=== PATIENT | male | born 2005 | race Caucasian/White ===

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

== ENCOUNTER 2024-05-08 23:19 | Emergency (ER) | payer BC, OTHER ==
[2024-05-08 23:48] VITALS: TEMP 98.1
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
[2024-05-09 02:09] VITALS: BP 124/79; PULSE 71; RESP 18
== END 2024-05-09 02:17 | disposition home or self-care (01) ==
LOC: EC 23:19
DX: S60.221A Contusion of right hand, initial encounter (principal); F17.290 Nicotine dependence, other tobacco product, uncomplicated; Y04.2XXA Assault by strike against or bumped into by another person, initial encounter
CPT/HCPCS: 99283

== ENCOUNTER 2024-06-13 09:02 | Day surgery (SDC) | payer BC, OTHER ==
[2024-06-13] MEDS: IV FLUID CONTINUATION 1,000 ML IV ONE (09:30)
[2024-06-13 09:35] LABS: Basophils # (A) 0.02 10*3/uL (0.00-0.10); Basophils % (A) 0.5 %; Eosinophils # (A) 0.08 10*3/uL (0.04-0.35); HGB 16.8 g/dL (13.0-17.0); Lymphocytes % (A) 32.7 %; MCV 88.6 fL (80.0-97.0); Mean Platelet Volume 9.6 fL (9.5-12.2); Monocytes # (A) 0.34 10*3/uL (0.20-1.00); Monocytes % (A) 8.5 %; Neutrophils # (A) 2.23 10*3/uL (1.80-7.70); Platelet Count 192 10*3/uL (140-440); RBC 5.42 10*6/uL (4.40-5.60); WBC 3.98 10*3/uL (4.50-10.00)
[2024-06-13 09:56] LABS: ALT 19 U/L (4-49); AST 31 U/L (17-59); African American GFR (CKD) >90 (>60 ml/min/1.73 sqM); Albumin 4.7 g/dL (3.5-5.0); Alkaline Phosphatase 74 U/L (38-126); Anion Gap 4 mmol/L; Blood Urea Nitrogen 12 mg/dL (9-20); Calcium 9.7 mg/dL (8.4-10.2); Carbon Dioxide 33 mmol/L (22-30); Chloride 103 mmol/L (98-107); Glucose 91 mg/dL (74-99); Non-African American GFR(CKD) >90 (>60 ml/min/1.73 sqM); Potassium 4.2 mmol/L (3.5-5.1); Sodium 140 mmol/L (137-145); Total Bilirubin 0.9 mg/dL (0.2-1.3)
[2024-06-13] MEDS ORDERED: fentaNYL (PF) 50 MCG/ML 2 ML AMP ONE (11:44)
[2024-06-13] MEDS ORDERED: PROPOFOL 10 MG/ML 20 ML VIAL IV ONE (11:44)
[2024-06-13] MEDS ORDERED: ISOPROTERENOL 250 MCG/1.25 ML SYR IV ONE (11:44)
[2024-06-13] MEDS ORDERED: MIDAZOLAM 2 MG/2 ML VIAL ONE (11:44)
[2024-06-13] MEDS: LIDOCAINE 1% INJ 10MG/ML (20 ML MDV) SQ ONE (12:30)
[2024-06-13] MEDS: ROPIVACAINE 5 MG/ML 30 ML VIAL MISCELLANE ONE (12:30)
[2024-06-13] MEDS: LACTATED RINGERS 1,000 ML IV ONE (14:00)
[2024-06-13] MEDS: HEPARIN SODIUM (1,000 UNIT/ML) 1,000 UNIT in SODIUM CHLORIDE 0.9% 1,000 ML IRRIGATION ONE (14:30)
[2024-06-13] MEDS ORDERED: ACETAMINOPHEN TAB 325 MG TAB PO PRN (16:31)
--- NOTE | 2024-06-13 16:39 | P.HPCAR ---
History of Present Illness This is Dr. Nassar dictating an H/P on this patient The patient was interviewed and examined IMPRESSION / ASSESSMENT: Recurrent palpitations and 2 episodes of loss of consciousness that are preceded by palpitations Mitral prolapse without significant MR Exercise stress test shows multiple episodes of nonsustained wide-complex tachycardia Cardiac MRI in showed normal LV with mitral prolapse without any significant MR, mild prolapse Monitor shows possible episodes of SVT PLAN: Full diagnostic EP study to evaluate for SVT and for VT/syncope preceded by palpitations HPI Has episodes of syncope and presyncope that are preceded by rapid heartbeat. His monitor shows possible SVT Exercise stress test showed nonsustained VT Cardiac MRI showed normal RV function normal LV size and function, mildly enlarged RV Mild mitral prolapse without any significant mitral regurgitation ROS: No fever chills or rigors, no cough, phlegm or expectoration, no nausea, vomiting or diarrhea, no hematuria, dysuria, no musculoskeletal complaints, no strokes or seizures, no skin lesions. EXAMINATION: 136/61 mmHg pulse rate in the 70s afebrile Heart sounds S1-S2 normal Breath sounds are clear No JVD No lower extremity edema REVIEW OF LABS, ECG & MEDICAL DATA White count 4000, hematocrit 48, platelet count 192,000 Electrolytes normal Renal function normal Physical Exam Vitals: Vital Signs Temp Pulse Resp BP BP Pulse Ox 06/13/24 09:38 117/65 06/13/24 09:22 98.0 F 74 16 136/61 100 Intake and Output 06/13/24 06/13/24 06/13/24 06:59 14:59 22:59 Intake Total 1762 Balance 1762 Intake: IV 1762 Other: Weight 57.1 kg Past Medical History Past Medical History: Chest Pain / Angina, GERD/Reflux, Skin Disorder, Supraventricular Tachycardia (SVT), Syncope Additional Past Medical History / Comment(s): mild Autism, See Dr Nassar H&P, dry skin rashiness to hands- seeing bi report developer History of Any Multi-Drug Resistant Organisms: None Reported Additional Past Surgical History / Comment(s): lateral release L eye, screw and bolt to rt hand 5th metacarpal. colonscopy Past Anesthesia/Blood Transfusion Reactions: No Reported Reaction Smoking Status: Former smoker, Vaper - Past Family History Father Family Medical History: Diabetes Mellitus Mother History Unknown: Yes Physical Examination Vital Signs Temp Pulse Resp BP BP Pulse Ox 06/13/24 09:38 117/65 06/13/24 09:22 98.0 F 74 16 136/61 100 Intake and Output 06/13/24 06/13/24 06/13/24 06:59 14:59 22:59 Intake Total 1762 Balance 1762 Intake: IV 1762 Other: Weight 57.1 kg Results 06/13/24 09:25 06/13/24 09:25 Cardiac Enzymes 06/13/24 Range/Units 09:25 AST 31 (17-59) U/L CBC 06/13/24 Range/Units 09:25 WBC 3.98 L (4.50-10.00) 10*3/uL RBC 5.42 (4.40-5.60) 10*6/uL Hgb 16.8 (13.0-17.0) g/dL Hct 48.0 (39.6-50.0) % Plt Count 192 (140-440) 10*3/uL Comprehensive Metabolic Panel 06/13/24 Range/Units 09:25 Sodium 140 (137-145) mmol/L Potassium 4.2 (3.5-5.1) mmol/L Chloride 103 (98-107) mmol/L Carbon Dioxide 33 H (22-30) mmol/L BUN 12 (9-20) mg/dL Creatinine 0.90 (0.66-1.25) mg/dL Glucose 91 (74-99) mg/dL Calcium 9.7 (8.4-10.2) mg/dL AST 31 (17-59) U/L ALT 19 (4-49) U/L Alkaline Phosphatase 74 (38-126) U/L Total Protein 7.0 (6.3-8.2) g/dL Albumin 4.7 (3.5-5.0) g/dL Current Medications Generic Name Dose Route Start Last Admin Trade Name Freq PRN Reason Stop Dose Admin Acetaminophen 650 mg 06/13/24 16:31 Acetaminophen Tab 325 Mg Tab PO Q6HR PRN Mild Pain (Scale 1 to 3) Fluoxetine HCl 20 mg 06/14/24 09:00 Fluoxetine Oral Soln 20 Mg/5 Ml Bottle PO DAILY MAYELA Acetaminophen 1,000 mg/ IV 100 mls @ 400 mls/hr 06/13/24 16:45 Solution IVPB 06/13/24 16:59 ONCE ONE Sodium Chloride 12 ml 04/17/25 16:31 Sodium Chloride 0.9% Flush 10 Ml Syringe IV Q12HR PRN Line Flush Intake and Output 06/13/24 06/13/24 06/13/24 06:59 14:59 22:59 Intake Total 1762 Balance 1762 Intake: IV 1762 Other: Weight 57.1 kg Patient Weight 06/14/24 06:59 Weight 57.1 kg 06/13/24 09:25 06/13/24 09:25
[2024-06-13] MEDS: MEPERIDINE 25 MG/ML SYRINGE IVP STA (16:51)
--- NOTE | 2024-06-13 16:52 | P.EPPROC ---
- EP Procedure Note Electrophysiology Procedure Note: Indication for the procedure: Recurrent syncope and presyncope preceded by rapid heartbeat Monitor shows episodes of SVT Exercise stress test showed nonsustained VT Final diagnosis Diagnosis EP study revealed evidence of slow pathway conduction, with very easily inducible AV opal reentry No evidence of accessory pathway conduction No evidence for inducible ventricular tachycardia both on and off Isopril Successful ablation of the slow pathway with illumination of the slow pathway finally Long ablation on count of extensive area of slow pathway conduction Details Patient was brought to the EP lab in a fasting state. Written informed consent was obtained prior to the procedure. Conscious sedation provided. By anesthesia Venous sheaths were placed in the right left femoral veins and diagnostic catheters post in the high right atrium, coronary sinus, His bundle area and right ventricle Baseline measurements: Sinus cycle length 1228 ms, WA interval 140 ms, QRS 110 and QT interval 431 ms AH 63 and HV interval 43 ms Sinus node recovery times were 1357, 1524 ms AV node Wenckebach block 580 ms VA Wenckebach block 310 ms Para-Hisian pacing revealed a opal response Retrograde conduction was midline and decremental on Isopril ACT was very easily induced on Isopril with straight pacing Ventricular pacing revealed a VAV response Show very short septal times noted SVT consistent with AV opal reentry An ablation catheter along with a deflectable sheath placed in the right atrium His cloud mapped. Coronary sinus mapped, tricuspid annulus mapped Slow pathway mapped on the anterior aspect of the coronary sinus and just below it RF ablation performed in a stepwise manner at the level of the coronary sinus just anterior to it. Junctional rhythm obtained but SVT inducible RF ablation performed outside the coronary sinus on the anterior aspect just at the level of the floor with junctional rhythm. However SVT was still inducible RF ablation performed at the anterior lip of the coronary sinus and at the roof of the coronary sinus. RF ablation then performed anterior to the coronary sinus and outside it at the level of the CS. Lots of junctional rhythm noted and temporarily the AV opal reentry was eliminated However on Isopril AVNRT recurred Further ablation performed at the level of the roof and just outside the roof. Then ablation performed along the tricuspid annulus anterior to the coronary sinus. Junctional rhythm obtained here followed by illumination of slow pathway and AV opal reentry The slow pathway area was quite extensive and in a stepwise manner ablation was performed first at the level of the floor of the coronary sinus, middle level and then at the roof, anteriorly Next ablation was performed outside the coronary sinus anteriorly at least half a centimeter away from the os. Subsequently more towards the tricuspid valve anteriorly with subsequent illumination of the slow pathway and AV opal reentry This is a very long procedure requiring stepwise ablation along the anterior aspect of the coronary sinus and outside it while staying at least 1.6 cm away from the AV node area and greater than 2 cm away from the hiss bundle area At the end of the procedure the WA interval was 161 ms No evidence of slow pathway conduction No evidence for AV opal reentry No evidence for any other arrhythmias At 1 point in time, sustained AVNRT, degenerated into atrial fibrillation This would not terminate spontaneously Successful electrical cardioversion with 100 J biphasic shock in the AP configuration converted the patient to sinus rhythm This is a very long AVNRT ablation the whole procedure lasted for over 5 hours but was ultimately successful and antegrade fast pathway conduction was intact at the end of the procedure All sheaths were removed and closure device applied and good hemostasis achieved
--- NOTE | 2024-06-13 16:54 | P.PRLE ---
RE: Marga Gresham Dear Indra Mr. 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
[2024-06-13] MEDS: ceFAZolin 2 GM in DEXTROSE 5% IN WATER 50 ML IVPB ONE (18:07)
[2024-06-13] MEDS: ACETAMINOPHEN IV (For NPO) 1,000 MG in EMPTY BAG 1 BAG IVPB ONE (18:10)
[2024-06-13] MEDS: SODIUM CHLORIDE 0.9% 1,000 ML IV SCH (18:47)
[2024-06-13] MEDS: LACTATED RINGERS 1,000 ML IV SCH (18:47)
[2024-06-13 22:20] VITALS: RESP 16
[2024-06-14 07:56] VITALS: BP 107/55; PULSE 89; TEMP 98.1
--- NOTE | 2024-06-14 10:15 | DS ---
DISCHARGE SUMMARY Marga Gresham is a 19-year-old male patient, who has history of recurrent syncope preceded by rapid palpitations. 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 He underwent successful ablation for this. There was elimination of the slow pathway and tachycardia was rendered noninducible both on and off Isuprel. His groins have healed well. There is no hematoma. No swelling. Minimal tenderness. Heart sounds are normal and regular. Breath sounds are clear. A 12-lead EKG today shows sinus rhythm, 78 beats per minute. [place] interval of [address]-segment abnormalities. IMPRESSION: 1. Recurrent syncope and presyncope preceded by rapid palpitations. 2. AV opal reentry, status post successful ablation and the tachycardia was rendered noninducible. PLAN: Post EP instructions for the next 2 days was explained to the patient. There is no need for any medications at this time. He will see Dr. Crowe in the office next week. Stable for discharge today. MMODL / IJN: [id number] /
[2024-06-14] MEDS: FLUOXETINE 20 MG/5 ML PO SCH (10:25)
--- NOTE | 2024-06-14 13:22 | CA ---
Transthoracic Echo Report Name: Marga Gresham Age: 19 Gender: M : 2005 Exam Date: 06/13/2024 16:18 Exam Location: [facility] Ht (in): 70 Wt (lb): 125 Ordering Physician: Richmond Nassar MD ([id number]) Attending/Referring Phys: Fire Technician Coco Ny RDCS Procedure CPT: Indications: POST ABLATION, Pericardial effusion (noninflammatory) Cardiac Hx: limited study only Technical Quality: Contrast 1: Total Dose (mL): Contrast 2: Total Dose (mL): MEASUREMENTS (Male / Female) Normal Values FINDINGS Left Ventricle Left ventricular ejection fraction is estimated at 50-55 %. Right Ventricle Right Atrium Left Atrium Mitral Valve Aortic Valve Tricuspid Valve Pulmonic Valve Pericardium No pericardial effusion. No pleural effusion. Aorta CONCLUSIONS Limited follow-up echo study LVEF 50 to 55% No pericardial effusion Previewed by: Dr Arthur Hernandez (Electronically Signed) Final Date: 14 June 2024 13:21
== END 2024-06-14 12:45 | disposition home or self-care (01) ==
LOC: CATHEP 09:02 → 6NMEDSUR 16:10 → CATHEP 06-14 12:45
PROVIDERS: ATTEND Internal Medicine Clinical Cardiac Electrophysiology
DX: I47.19 Other supraventricular tachycardia (principal); I48.91 Unspecified atrial fibrillation; I44.1 Atrioventricular block, second degree; I31.39 Other pericardial effusion (noninflammatory); I34.1 Nonrheumatic mitral (valve) prolapse; F84.0 Autistic disorder; Z83.3 Family history of diabetes mellitus; Z87.891 Personal history of nicotine dependence; Z79.899 Other long term (current) drug therapy
CPT/HCPCS: 93308; 86900; 86901; 80053; 84443; 85025; 86850; C1894; C1769; C1766; C1760; C1730 ×3; C1732; J2003; J1644; J2795; J0131; J2175; 92960; 93623; 93653

== ENCOUNTER 2024-06-18 13:16 | Emergency (ER) | payer OTHER ==
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
[2024-06-18 13:27] LABS: Glucose,Whole Blood 96 mg/dL (70-110)
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
[2024-06-18 13:42] LABS: Basophils # (A) 0.03 10*3/uL (0.00-0.10); Basophils % (A) 0.6 %; Eosinophils # (A) 0.06 10*3/uL (0.04-0.35); Eosinophils % (A) 1.3 %; HCT 46.1 % (39.6-50.0); Lymphocytes # (A) 1.19 10*3/uL (0.90-5.00); Lymphocytes % (A) 25.4 %; MCH 31.9 pg (27.0-32.0); MCHC 36.9 g/dL (32.0-37.0); MCV 86.5 fL (80.0-97.0); Mean Platelet Volume 9.9 fL (9.5-12.2); Monocytes # (A) 0.38 10*3/uL (0.20-1.00); Monocytes % (A) 8.1 %; Neutrophils % (A) 64.2 %; Platelet Count 198 10*3/uL (140-440); RBC 5.33 10*6/uL (4.40-5.60); RDW 11.6 % (11.5-14.5); WBC 4.68 10*3/uL (4.50-10.00)
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
[2024-06-18 13:56] LABS: ALT 21 U/L (4-49); AST 31 U/L (17-59); African American GFR (CKD) >90 (>60 ml/min/1.73 sqM); Albumin 4.7 g/dL (3.5-5.0); Alcohol <10 mg/dL; Alkaline Phosphatase 71 U/L (38-126); Anion Gap 11 mmol/L; Blood Urea Nitrogen 18 mg/dL (9-20); Calcium 9.9 mg/dL (8.4-10.2); Carbon Dioxide 27 mmol/L (22-30); Chloride 103 mmol/L (98-107); Glucose 105 mg/dL (74-99); Non-African American GFR(CKD) >90 (>60 ml/min/1.73 sqM); Sodium 141 mmol/L (137-145); Total Bilirubin 0.8 mg/dL (0.2-1.3); Total Protein 7.3 g/dL (6.3-8.2)
[2024-06-18 14:00] LABS: Partial Thromboplastin Time 22.2 sec (22.0-30.0); Prothrombin Time 10.8 sec (10.0-12.5)
--- NOTE | 2024-06-18 14:04 | CT ---
EXAMINATION TYPE: CT ChestAbdPelvis w con DATE OF EXAM: 06/18/2024 COMPARISON: None CLINICAL INDICATION: Male, 19 years old with history of trauma/CP CT DLP: 2357.7 COMBINED mGycm Automated exposure control for dose reduction was used. CONTRAST: CT scan of the chest, abdomen and pelvis is performed without Oral Contrast and with IV Contrast, pat ient injected with 100ml mL of Isovue 300. FINDINGS: CT chest: There is no suspicious lung mass or nodule. There is no abnormal airspace/consolidative density or abnormal interstitial density. There is no pleural effusion, pleural thickening or pneumothorax. The great vessels and chest are normal there is no mediastinal, hilar or axillary adenopathy. No focal osseous lesions are seen. CT abdomen and pelvis: Gallbladder is normal without distention, pericholecystic fluid, wall thickening or gallstone. There is no biliary ductal dilatation. There is no focal mass or organomegaly involving the liver, pancreas, spleen or adrenal glands.. There is no solid renal mass or hydronephrosis. There is no retroperitoneal adenopathy or hemorrhage in the caliber of the abdominal aorta is normal. The bowel loops are normal in caliber and there is no dilatation or obstruction. No inflammatory martin ges identified in the bowel wall and mesentery. There is no free intracranial air or fluid. There is no pelvic mass or adenopathy. There is no free fluid within the pelvis. No focal osseous lesions are seen. Soft tissue the abdomen and pelvis are normal. IMPRESSION: No significant abnormality seen. No evidence of acute trauma. [facility], , 06/18/2024 2:02 PM
[2024-06-18 14:25] LABS: Appearance,Urine Clear (Clear); Bilirubin,Urine Negative (Negative); Blood,Urine Negative (Negative); Color,Urine Colorless; Glucose,Urine (UA) Negative (Negative); Ketones,Urine Negative (Negative); Leukocyte Esterase,Urine Negative (Negative); Nitrite,Urine Negative (Negative); PH, Urine 6.5 (5.0-8.0); Protein,Urine Negative (Negative); Specific Gravity,Urine 1.027 (1.001-1.035); Urobilinogen,Urine <2.0 mg/dL (<2.0)
[2024-06-18] MEDS: ACETAMINOPHEN TAB 500 MG TAB PO STA ×2 (14:46→14:51)
[2024-06-18 14:48] LABS: Amphetamine Screen,Urine Not Detected (NotDetected); Barbiturate Screen,Urine Not Detected (NotDetected); Benzodiazepines Screen,Urine Not Detected (NotDetected); Cocaine Screen,Urine Not Detected (NotDetected); Methadone Screen, Urine Not Detected (NotDetected); Opiate Screen,Urine Not Detected (NotDetected); Oxycodone Screen, Urine Not Detected (NotDetected); Phencyclidine Screen,Urine Not Detected (NotDetected); Tricyclic Antidepressant,Urine Not Detected (NotDetected); Urn Cannabinoid Scrn Not Detected (NotDetected)
[2024-06-18 17:47] VITALS: BP 123/73; PULSE 106; RESP 16; TEMP 98
== END 2024-06-18 18:58 | disposition home or self-care (01) ==
LOC: EC 13:16
DX: R07.9 Chest pain, unspecified (principal); F17.290 Nicotine dependence, other tobacco product, uncomplicated; V49.40XA Driver injured in collision with unspecified motor vehicles in traffic accident, initial encounter; Y92.410 Unspecified street and highway as the place of occurrence of the external cause
CPT/HCPCS: 36415; 93005; 86900; 86901; 80053; 83605; 84484; 85025; 85610; 85730; 86850; 81003; 80306; 72170; 71045; 72125; 70450; 71260; 74177; 99285; G0480; Q9967; 80320

== ENCOUNTER 2024-07-04 20:00 | Emergency (ER) | payer OTHER ==
[2024-07-04 20:12] VITALS: RESP 17
--- NOTE | 2024-07-04 20:24 | ED ---
Arrhythmia/Palpitations HPI - General Chief Complaint: Arrhythmia/Palpitations Stated Complaint: Chest Pain Time Seen by Provider: 07/04/24 20:16 Source: patient Mode of arrival: ambulatory Limitations: no limitations - History of Present Illness Initial Comments: 19-year-old male presenting with chief complaint of palpitations. Patient states that for the past few days he feels like his heart is beating "harder". Patient does have history of SVT and had an ablation on 06/[address] Nassar. States that sometimes he does get pain with these episodes. There is also some shortness of breath as well. It is worse when he is exerting himself and feels better when he lays down. No swelling in the lower extremities. No nausea vomiting or abdominal pain. No URI-like symptoms. No headaches blurred vision or dizziness. Patient states that he has 1 small red bull throughout the day. - Related Data Home Medications Medication Instructions Recorded Confirmed FLUoxetine ORAL SOLN [PROzac ORAL 20 mg PO DAILY 06/11/24 06/13/24 SOLN] Unk Multi Vitamin 1 tab PO DAILY 06/11/24 06/13/24 Allergies Allergy/AdvReac Type Severity Reaction Status Date / Time No Known Allergies Allergy Verified 07/04/24 20:12 Review of Systems ROS Statement: Those systems with pertinent positive or pertinent negative responses have been documented in the HPI. ROS Other: All systems not noted in ROS Statement are negative. Past Medical History Past Medical History: No Reported History Additional Past Medical History / Comment(s): Autism, SVT, Ventricular tachycardia, premature ventricular contractions. History of Any Multi-Drug Resistant Organisms: None Reported Additional Past Surgical History / Comment(s): lateral release L eye Past Psychological History: ADD/ADHD, Anxiety, Depression Smoking Status: Current every day smoker, Vaper Past Alcohol Use History: None Reported Past Drug Use History: None Reported General Exam Limitations: no limitations General appearance: alert, in no apparent distress Head exam: Present: atraumatic, normocephalic, normal inspection Eye exam: Present: normal appearance, EOMI Neck exam: Present: normal inspection. Absent: meningismus Respiratory exam: Present: normal lung sounds bilaterally. Absent: respiratory distress, wheezes, rales, rhonchi, stridor Cardiovascular Exam: Present: regular rate, normal rhythm, normal heart sounds. Absent: systolic murmur, diastolic murmur, rubs, gallop, clicks Extremities exam: Absent: pedal edema Neurological exam: Present: alert, oriented X3 Psychiatric exam: Present: normal affect, normal mood Skin exam: Present: warm, dry, normal color Course Vital Signs 07/04/24 07/04/24 20:06 22:42 Temperature 97.8 F 98 F Pulse Rate 63 59 L Respiratory 17 17 Rate Blood Pressure 116/74 108/71 O2 Sat by Pulse 99 100 Oximetry Medical Decision Making - Medical Decision Making EKG shows sinus rhythm with sinus arrhythmia with short AZ interval. Ventricular rate 63. AZ interval 113. QRS 80. QT 395. QTc 403. Was pt. sent in by a medical professional or institution (, PA, SENIOR CLINICIAN, urgent care, hospital, or intermediate...) When possible be specific @ -No Did you speak to anyone other than the patient for history (EMS, parent, family, police, friend...)? What history was obtained from this source @ -No Did you review nursing and triage notes (agree or disagree)? Why? @ -I reviewed and agree with nursing and triage notes Were old charts reviewed (outside hosp., previous admission, EMS record, old EKG, old radiological studies, urgent care reports/EKG's, intermediate records)? Report findings @ -No old charts were reviewed Differential Diagnosis (chest pain, altered mental status, abdominal pain women, abdominal pain men, vaginal bleeding, weakness, fever, dyspnea, syncope, headache, dizziness, GI bleed, back pain, seizure, CVA, palpatations, mental health, musculoskeletal)? @ -Differential Palpitations Ventricular arrhythmias, atrial arrhythmias, myocardial infarction, anemia, thyrotoxicosis, electrolyte imbalance, hypokalemia, pulmonary embolism, pulmonary disease, drugs, alcohol, anxiety, stress.... This is not meant to be an all-inclusive list. EKG interpreted by me (3pts min.). @ -As above X-rays interpreted by me (1pt min.). @ -Chest x-ray shows no acute process CT interpreted by me (1pt min.). @ -None done U/S interpreted by me (1pt. min.). @ -None done What testing was considered but not performed or refused? (CT, X-rays, U/S, labs)? Why? @ -None What meds were considered but not given or refused? Why? @ -None Did you discuss the management of the patient with other professionals (professionals i.e. Dr., PA, SENIOR CLINICIAN, lab, RT, psych nurse, social insurance specialist, director of volunteer services, teacher, police or patrol park officer, pillowcase folder)? Give summary @ -No Was smoking cessation discussed for >3mins.? @ -No Was critical care preformed (if so, how long)? @ -No Were there social determinants of health that impacted care today? How? (Homelessness, low income, unemployed, alcoholism, drug addiction, transportation, low edu. Level, literacy, decrease access to med. care, nursing home, rehab)? @ -No Was there de-escalation of care discussed even if they declined (Discuss DNR or withdrawal of care, Hospice)? DNR status @ -No What co-morbidities impacted this encounter? (DM, HTN, Smoking, COPD, CAD, Cancer, CVA, ARF, Chemo, Hep., AIDS, mental health diagnosis, sleep apnea, mo rbid obesity)? @ -None Was patient admitted / discharged? Hospital course, mention meds given and r oute, prescriptions, significant lab abnormalities, going to OR and other pertinent info. @ -19-year-old male presenting with chief complaint of palpitations. He feels like his heart is beating "harder" than usual. History and physical examination are conducted. Vital signs are stable. Urine shows trace ketones, may be due to dehydration. Remainder of lab work is grossly unremarkable. Chest x-ray shows no acute process and EKG shows sinus rhythm. On reassessment the patient is resting in the stretcher showing no signs of distress. He is educated on today's findings. He was supposed to have a follow-up appointment with his kiln stacker after his ablation last month but he states that he did not get a chance to because he was busy. He will call the office tomorrow to schedule a follow-up appointment. Follow-up with PCP. Report back to ER with any new or worsening symptoms. Discussed return parameters and answered all questions. Patient conveyed verbal understanding and agreed to the plan. I discussed this case in detail with my attending Dr. London Undiagnosed new problem with uncertain prognosis? @ -No Drug Therapy requiring intensive monitoring for toxicity (Heparin, Nitro, Insulin, Cardizem)? @ -No Were any procedures done? @ -No Diagnosis/symptom? @ -Palpitations Acute, or Chronic, or Acute on Chronic? @ -Acute Uncomplicated (without systemic symptoms) or Complicated (systemic symptoms)? @ -Uncomplicated Side effects of treatment? @ -No Exacerbation, Progression, or Severe Exacerbation? @ -No Poses a threat to life or bodily function? How? (Chest pain, USA, NV, pneumonia, PE, COPD, DKA, ARF, appy, cholecystitis, CVA, Diverticulitis, Homicidal, S uicidal, threat to staff... and all critical care pts) @ -Unlikely - Lab Data Result diagrams: 07/04/24 20:17 07/04/24 20:17 Lab Results 07/04/24 07/04/24 07/04/24 Range/Units 20:17 20:17 20:17 WBC 6.91 (4.50-10.00) 10*3/uL RBC 5.38 (4.40-5.60) 10*6/uL Hgb 16.9 (13.0-17.0) g/dL Hct 47.3 (39.6-50.0) % MCV 87.9 (80.0-97.0) fL MCH 31.4 (27.0-32.0) pg MCHC 35.7 (32.0-37.0) g/dL Plt Count 249 (140-440) 10*3/uL MPV 9.6 (9.5-12.2) fL Immature Gran % (Auto) 0.1 % Neutrophils % 59.5 % Lymphocytes % 30.5 % Monocytes % 8.7 % Eosinophils % 0.9 % Basophils % 0.3 % Immature Gran # 0.01 (0.00-0.04) 10*3/uL Neutrophils # 4.11 (1.80-7.70) 10*3/uL Lymphocytes # 2.11 (0.90-5.00) 10*3/uL Monocytes # 0.60 (0.20-1.00) 10*3/uL Eosinophils # 0.06 (0.04-0.35) 10*3/uL Basophils # 0.02 (0.00-0.10) 10*3/uL PT 11.4 (10.0-12.5) sec INR 1.0 (<1.2) APTT 24.7 (22.0-30.0) sec Sodium 141 (137-145) mmol/L Potassium 3.7 (3.5-5.1) mmol/L Chloride 102 (98-107) mmol/L Carbon Dioxide 30 (22-30) mmol/L Anion Gap 9 mmol/L BUN 17 (9-20) mg/dL Creatinine 0.77 (0.66-1.25) mg/dL Est GFR (CKD-EPI)AfAm >90 (>60 ml/min/1.73 sqM) Est GFR (CKD-EPI)NonAf >90 (>60 ml/min/1.73 sqM) Glucose 82 (74-99) mg/dL Calcium 9.9 (8.4-10.2) mg/dL Magnesium 2.2 (1.6-2.3) mg/dL Total Bilirubin 0.7 (0.2-1.3) mg/dL AST 30 (17-59) U/L ALT 19 (4-49) U/L Alkaline Phosphatase 89 (38-126) U/L Troponin I (0.000-0.034) ng/mL Total Protein 7.5 (6.3-8.2) g/dL Albumin 4.9 (3.5-5.0) g/dL TSH 0.825 (0.465-4.680) mIU/L Urine Color Urine Appearance (Clear) Urine pH (5.0-8.0) Ur Specific [place] (1.001-1.035) Urine Protein (Negative) Urine Glucose (UA) (Negative) Urine Ketones (Negative) Urine Blood (Negative) Urine Nitrite (Negative) Urine Bilirubin (Negative) Urine Urobilinogen (<2.0) mg/dL Ur Leukocyte Esterase (Negative) Urine Opiates Screen (NotDetected) Ur Oxycodone Screen (NotDetected) Urine Methadone Screen (NotDetected) Ur Barbiturates Screen (NotDetected) U Tricyclic Antidepress (NotDetected) Ur Phencyclidine Scrn (NotDetected) Ur Amphetamines Screen (NotDetected) U Methamphetamines Scrn (NotDetected) U Benzodiazepines Scrn (NotDetected) Urine Cocaine Screen (NotDetected) U Marijuana (THC) Screen (NotDetected) 07/04/24 07/04/24 Range/Units 20:17 22:01 WBC (4.50-10.00) 10*3/uL RBC (4.40-5.60) 10*6/uL Hgb (13.0-17.0) g/dL Hct (39.6-50.0) % MCV (80.0-97.0) fL MCH (27.0-32.0) pg MCHC (32.0-37.0) g/dL Plt Count (140-440) 10*3/uL MPV (9.5-12.2) fL Immature Gran % (Auto) % Neutrophils % % Lymphocytes % % Monocytes % % Eosinophils % % Basophils % % Immature Gran # (0.00-0.04) 10*3/uL Neutrophils # (1.80-7.70) 10*3/uL Lymphocytes # (0.90-5.00) 10*3/uL Monocytes # (0.20-1.00) 10*3/uL Eosinophils # (0.04-0.35) 10*3/uL Basophils # (0.00-0.10) 10*3/uL PT (10.0-12.5) sec INR (<1.2) APTT (22.0-30.0) sec Sodium (137-145) mmol/L Potassium (3.5-5.1) mmol/L Chloride (98-107) mmol/L Carbon Dioxide (22-30) mmol/L Anion Gap mmol/L BUN (9-20) mg/dL Creatinine (0.66-1.25) mg/dL Est GFR (CKD-EPI)AfAm (>60 ml/min/1.73 sqM) Est GFR (CKD-EPI)NonAf (>60 ml/min/1.73 sqM) Glucose (74-99) mg/dL Calcium (8.4-10.2) mg/dL Magnesium (1.6-2.3) mg/dL Total Bilirubin (0.2-1.3) mg/dL AST (17-59) U/L ALT (4-49) U/L Alkaline Phosphatase (38-126) U/L Troponin I <0.012 (0.000-0.034) ng/mL Total Protein (6.3-8.2) g/dL Albumin (3.5-5.0) g/dL TSH (0.465-4.680) mIU/L Urine Color Colorless Urine Appearance Clear (Clear) Urine pH 7.0 (5.0-8.0) Ur Specific [place] 1.019 (1.001-1.035) Urine Protein Negative (Negative) Urine Glucose (UA) Negative (Negative) Urine Ketones Trace H (Negative) Urine Blood Negative (Negative) Urine Nitrite Negative (Negative) Urine Bilirubin Negative (Negative) Urine Urobilinogen <2.0 (<2.0) mg/dL Ur Leukocyte Esterase Negative (Negative) Urine Opiates Screen Not Detected (NotDetected) Ur Oxycodone Screen Not Detected (NotDetected) Urine Methadone Screen Not Detected (NotDetected) Ur Barbiturates Screen Not Detected (NotDetected) U Tricyclic Antidepress Not Detected (NotDetected) Ur Phencyclidine Scrn Not Detected (NotDetected) Ur Amphetamines Screen Not Detected (NotDetected) U Methamphetamines Scrn Not Detected (NotDetected) U Benzodiazepines Scrn Not Detected (NotDetected) Urine Cocaine Screen Not Detected (NotDetected) U Marijuana (THC) Screen Not Detected (NotDetected) Disposition Clinical Impression: Palpitations Disposition: HOME SELF-CARE Condition: Good Instructions (If sedation given, give patient instructions): Heart Palpitations (ED) Additional Instructions: Follow-up with your PCP and kiln stacker. Report back to ER with any new or worsening symptoms. Is patient prescribed a controlled substance at d/c from ED?: No Referrals: Eugenio Benson MD [Primary Care Provider] - 1-2 days Richmond Nassar MD [STAFF PHYSICIAN] - 1-2 days Time of Disposition: 22:41
[2024-07-04 20:27] LABS: Basophils # (A) 0.02 10*3/uL (0.00-0.10); Basophils % (A) 0.3 %; Eosinophils # (A) 0.06 10*3/uL (0.04-0.35); Eosinophils % (A) 0.9 %; HCT 47.3 % (39.6-50.0); HGB 16.9 g/dL (13.0-17.0); Lymphocytes # (A) 2.11 10*3/uL (0.90-5.00); Lymphocytes % (A) 30.5 %; MCH 31.4 pg (27.0-32.0); MCHC 35.7 g/dL (32.0-37.0); MCV 87.9 fL (80.0-97.0); Mean Platelet Volume 9.6 fL (9.5-12.2); Monocytes % (A) 8.7 %; Neutrophils # (A) 4.11 10*3/uL (1.80-7.70); Neutrophils % (A) 59.5 %; Platelet Count 249 10*3/uL (140-440); RBC 5.38 10*6/uL (4.40-5.60); RDW 11.6 % (11.5-14.5); WBC 6.91 10*3/uL (4.50-10.00)
[2024-07-04 20:37] LABS: Partial Thromboplastin Time 24.7 sec (22.0-30.0); Prothrombin Time 11.4 sec (10.0-12.5)
[2024-07-04 20:39] LABS: ALT 19 U/L (4-49); AST 30 U/L (17-59); African American GFR (CKD) >90 (>60 ml/min/1.73 sqM); Albumin 4.9 g/dL (3.5-5.0); Alkaline Phosphatase 89 U/L (38-126); Anion Gap 9 mmol/L; Blood Urea Nitrogen 17 mg/dL (9-20); Calcium 9.9 mg/dL (8.4-10.2); Carbon Dioxide 30 mmol/L (22-30); Chloride 102 mmol/L (98-107); Glucose 82 mg/dL (74-99); Magnesium 2.2 mg/dL (1.6-2.3); Non-African American GFR(CKD) >90 (>60 ml/min/1.73 sqM); Potassium 3.7 mmol/L (3.5-5.1); Sodium 141 mmol/L (137-145); Total Bilirubin 0.7 mg/dL (0.2-1.3); Total Protein 7.5 g/dL (6.3-8.2)
[2024-07-04] MEDS: SODIUM CHLORIDE 0.9% 1,000 ML IV STA (20:53)
--- NOTE | 2024-07-04 21:18 | XR ---
EXAMINATION TYPE: XR chest 2V DATE OF EXAM: 07/04/2024 8:47 PM COMPARISON: 06/18/2024 CLINICAL INDICATION: Male, 19 years old with history of dysrhythmia, TECHNIQUE: XR chest 2V view(s) obtained. FINDINGS: The heart size is normal. The pulmonary vasculature is normal. The lungs are clear. IMPRESSION: 1. No acute pulmonary process. [facility], Workstation: [facility], 07/04/2024 9:16 PM
[2024-07-04 22:14] LABS: Appearance,Urine Clear (Clear); Bilirubin,Urine Negative (Negative); Blood,Urine Negative (Negative); Color,Urine Colorless; Glucose,Urine (UA) Negative (Negative); Ketones,Urine Trace (Negative); Leukocyte Esterase,Urine Negative (Negative); Nitrite,Urine Negative (Negative); Protein,Urine Negative (Negative); Specific Gravity,Urine 1.019 (1.001-1.035); Urobilinogen,Urine <2.0 mg/dL (<2.0)
[2024-07-04 22:25] LABS: Amphetamine Screen,Urine Not Detected (NotDetected); Barbiturate Screen,Urine Not Detected (NotDetected); Benzodiazepines Screen,Urine Not Detected (NotDetected); Cocaine Screen,Urine Not Detected (NotDetected); Methadone Screen, Urine Not Detected (NotDetected); Opiate Screen,Urine Not Detected (NotDetected); Oxycodone Screen, Urine Not Detected (NotDetected); Phencyclidine Screen,Urine Not Detected (NotDetected); Tricyclic Antidepressant,Urine Not Detected (NotDetected); Urn Cannabinoid Scrn Not Detected (NotDetected)
[2024-07-04 22:49] VITALS: BP 108/71; PULSE 59; TEMP 98
== END 2024-07-04 22:48 | disposition home or self-care (01) ==
LOC: EC 20:00
DX: R00.2 Palpitations (principal); F17.290 Nicotine dependence, other tobacco product, uncomplicated
CPT/HCPCS: 36415; 71046; 80053; 80306; 81003; 83735; 84443; 84484; 85025; 85610; 85730; 93005; 96360; 99285